=== PATIENT | female | born 1955 | race Caucasian/White ===

== ENCOUNTER 2021-12-22 01:09 | Day surgery (SDC) | payer BC, SELFPAY ==
[2021-12-11 13:24] VITALS: BMI 27.4
[2021-12-22 06:27] VITALS: BP 113/58; PULSE 83; RESP 16; TEMP 35.9; O2SAT 99
[2021-12-22] MEDS: LACTATED RINGERS 1,000 ML 150 ML IV CONT (06:35)
--- NOTE | 2021-12-22 06:59 | WPDANESEPPF ---
Anes - Initial Pre Proc Eval Procedure: Operation Date: 12/22/21 07:30 Proposed Procedures p Screening Colonoscopy - Stanley Yancey MD Date/Time: 12/22/21 06:59 Surgeon: Stanley Yancey MD Pre Op Diagnosis: neoplasm screening Patient Data Age: 66 Gender: F Height: 1.65 m Weight: 78.6 kg Last Vital Signs Temp 35.9 C L 12/22/21 06:27 Pulse 83 12/22/21 06:27 Resp 16 12/22/21 06:27 BP 113/58 L 12/22/21 06:27 Pulse Ox 99 12/22/21 06:27 Allergies Allergy/AdvReac Type Severity Reaction Status Date / Time No Known Allergies Allergy Mild Verified 12/22/21 06:26 Home Medications Medication Instructions Recorded Confirmed Type aspirin 81 mg tablet,delayed 81 mg PO DAILY 07/03/19 12/22/21 History release calcium carbonate 600 mg calcium 1,200 mg PO EVERY OTHER DAY 07/03/19 12/22/21 History (1,500 mg) tablet omega-3 fatty acids 1,000 mg 1,200 mg PO EVERY OTHER DAY 07/03/19 12/22/21 History capsule cholecalciferol (vitamin D3) 10 10 mcg PO EVERY OTHER DAY 07/27/20 12/22/21 History mcg (400 unit) capsule multivitamin 1 tablet PO EVERY OTHER DAY 07/27/20 12/22/21 History levothyroxine 50 mcg tablet 50 mcg PO DAILY #90 tablet 08/07/21 12/22/21 Rx Patient hx anesthesia problems: none Family hx anesthesia problems: none Results Review: All pre-operative results and documents have been reviewed as part of the pre-operative evaluation. [facility] Past Medical History Medical History Acquired hypothyroidism Osteopenia Pure hypercholesterolemia Surgical History Surgical History History of cholecystectomy History of tonsillectomy Family History Family History Sibling Cerebrovascular accident Family history of heart disease in male family member before age 55 Family history of glaucoma Family history of cardiovascular disease Mother Family history of heart disease in male family member before age 55 Family history of glaucoma Family history of cardiovascular disease Father Family history of malignant neoplasm Malignant neoplasm of prostate Other Diabetes mellitus Family history of allergic disorder Family history of tuberculosis Hypertension Social History Social History Smoking status: Never smoker Second hand tobacco smoke exposure: No Alcohol intake: current Drinks per week: 1 Substance use type: does not use Living arrangements: with family Spiritual care concerns: No Anes - Eval Final PreProcedure Day of Procedure 12/22/21 06:59 Patient weight: overweight Heart: regular rate and rhythm Lungs: clear to auscultation Airway: Mallampati scale class II Neurological: alert and oriented Last oral intake: >/= 8 hours ASA classification: II Emergent: no Anesthetic plan: proceed Anesthesia type and monitoring: general GIVS and standard monitoring Results Review: All pre-operative results and documents have been reviewed as part of the pre-operative evaluation. Informed Consent: The patient's anesthetic plan and its attendant risks and benefits were discussed with the patient/family/POA. Questions were solicited and answers provided to the satisfaction of the patient/family/POA.
--- NOTE | 2021-12-22 07:19 | WPDGICN ---
Assessment and Plan Assessment and plan (1) Encounter for screening colonoscopy: Code(s): Z12.11 - Encounter for screening for malignant neoplasm of colon Status: Acute Assessment and Plan: Patient presents for screening colonoscopy. She appears to be at average risk for colon polyps. Further recommendations will be given after endoscopy. GI Consult Note Consult date/time: 12/22/21 07:19 HPI: Chula Perdue is a 66 year old female Presents for screening colonoscopy. Patient reports that her current weight appetite and bowel movements are normal. She denies abdominal pain. She has had no bleeding. Family history is noncontributory. Her last colonoscopy 11 years ago was unremarkable. She presents today for neoplasia screening colonoscopy. Review of Systems Review of Systems: All systems reviewed & are unremarkable except as noted in HPI and below PMFSH Past Medical History Medical History Acquired hypothyroidism Osteopenia Pure hypercholesterolemia Surgical History Surgical History History of cholecystectomy History of tonsillectomy Family History Family History Sibling Cerebrovascular accident Family history of heart disease in male family member before age 55 Family history of glaucoma Family history of cardiovascular disease Mother Family history of heart disease in male family member before age 55 Family history of glaucoma Family history of cardiovascular disease Father Family history of malignant neoplasm Malignant neoplasm of prostate Other Diabetes mellitus Family history of allergic disorder Family history of tuberculosis Hypertension Social History Social History Smoking status: Never smoker Second hand tobacco smoke exposure: No Alcohol intake: current Drinks per week: 1 Substance use type: does not use Living arrangements: with family Spiritual care concerns: No Meds Home Medications and Allergies Home Medications Medication Instructions Recorded Confirmed Type aspirin 81 mg tablet,delayed 81 mg PO DAILY 07/03/19 12/22/21 History release calcium carbonate 600 mg calcium 1,200 mg PO EVERY OTHER DAY 07/03/19 12/22/21 History (1,500 mg) tablet omega-3 fatty acids 1,000 mg 1,200 mg PO EVERY OTHER DAY 07/03/19 12/22/21 History capsule cholecalciferol (vitamin D3) 10 10 mcg PO EVERY OTHER DAY 07/27/20 12/22/21 History mcg (400 unit) capsule multivitamin 1 tablet PO EVERY OTHER DAY 07/27/20 12/22/21 History levothyroxine 50 mcg tablet 50 mcg PO DAILY #90 tablet 08/07/21 12/22/21 Rx Allergies Allergy/AdvReac Type Severity Reaction Status Date / Time No Known Allergies Allergy Mild Verified 12/22/21 06:26 Vital Signs Vital Signs - 24 hr 12/22/21 06:27 Temperature 96.7 F L Pulse Rate 83 Respiratory Rate 16 Blood Pressure 113/58 L Pulse Oximetry 99 Exam Narrative: Physical exam reveals patient to be alert. Vital signs stable. HEENT exam is unremarkable. Patient is anicteric. Lungs are clear to auscultation and percussion. Heart is without murmur or extra sounds. Abdomen bowel sounds are present soft nontender with no organomegaly. Digital external rectal exam is normal.
[2021-12-22 07:41] VITALS: BP 97/56; PULSE 71; RESP 17; O2SAT 97
[2021-12-22 07:51] VITALS: BP 116/69; PULSE 66; RESP 18; O2SAT 98
[2021-12-22 08:01] VITALS: BP 110/55; PULSE 66; RESP 15; O2SAT 98
== END 2021-12-22 08:10 | disposition home or self-care (01) ==
PROVIDERS: PCP Family Medicine; Visit Provider Internal Medicine Gastroenterology
PROC: 0DJD8ZZ Inspection of Lower Intestinal Tract, Via Natural or Artificial Opening Endoscopic (ICD-10-PCS; CPT 45378; principal; 2021-12-22 07:30)
DX: Z12.11 Encounter for screening for malignant neoplasm of colon (principal); D12.0 Benign neoplasm of cecum; K64.8 Other hemorrhoids; E03.9 Hypothyroidism, unspecified; E78.00 Pure hypercholesterolemia, unspecified; M85.80 Other specified disorders of bone density and structure, unspecified site; Z79.82 Long term (current) use of aspirin
CPT/HCPCS: 45385; 88305; J2704; J7120